=== PATIENT | male | born 1955 | race Caucasian/White ===

== ENCOUNTER 2022-03-23 16:47 | Emergency (ER) | payer MEDICARE, OTHER ==
[~2022-03-23] VITALS: Ht 165.1 cm; Wt 81.6 kg
[~2022-03-23 16:47] MED LIST: SULF1TAB48 PO
[2022-03-23] MEDS ORDERED: IBUP-1955 PO (18:05)
--- NOTE | 2022-03-23 18:08 | NUR ---
Patient discharged to home in stable condition. Written and verbal after care instructions given. Patient verbalizes understanding of instructions. Stressed follow up or return to ER for worsening s/s.
== END 2022-03-23 18:08 | disposition home or self-care (01) ==
LOC: ER 16:47
DX: S63.502A Unspecified sprain of left wrist, initial encounter (principal); W19.XXXA Unspecified fall, initial encounter; Y92.89 Other specified places as the place of occurrence of the external cause; Z85.47 Personal history of malignant neoplasm of testis
CPT/HCPCS: 73110; A4663